=== PATIENT | female | born 2000 | race Caucasian/White ===

== ENCOUNTER 2021-04-09 16:38 | Emergency (ER) | payer OTHER, SELFPAY ==
[~2021-04-09] VITALS: Ht 165.1 cm; Wt 60.0 kg
[2021-04-09 16:58] VITALS: BP 122/63
== END 2021-04-09 18:42 | disposition home or self-care (01) ==
LOC: ED 18:30
DX: S93.401A Sprain of unspecified ligament of right ankle, initial encounter (principal); X50.0XXA Overexertion from strenuous movement or load, initial encounter; Y93.89 Activity, other specified; Y92.009 Unspecified place in unspecified non-institutional (private) residence as the place of occurrence of the external cause; Y99.8 Other external cause status
CPT/HCPCS: 99284

== ENCOUNTER 2021-04-14 03:07 | Emergency (ER) | payer OTHER ==
[~2021-04-14] VITALS: Ht 165.1 cm; Wt 64.0 kg
[2021-04-14 03:23] VITALS: BP 134/80
== END 2021-04-14 03:49 | disposition home or self-care (01) ==
LOC: ED 03:46
DX: S93.491A Sprain of other ligament of right ankle, initial encounter (principal); X58.XXXA Exposure to other specified factors, initial encounter; Y93.89 Activity, other specified; Y92.89 Other specified places as the place of occurrence of the external cause; Y99.8 Other external cause status
CPT/HCPCS: 99281